=== PATIENT | male | born 1970 | race African-American/Black ===

== ENCOUNTER → 2021-01-07 | Day surgery (SDC) | payer OTHER ==
[~2021-01-07] MED LIST: HYOSCYAMINE SULFATE 0.5 MG/ML INJ ONE; IRON PO; MULTI-VITAMIN1 EACH PO; NAPROXEN250 MG PO; OMEGA 3 FISH O1 EACH PO; PROPOFOL IV EMULSION 10 MG/ML 20 ML VIAL ONE; VITAMIN C PO
[2021-01-07 14:26] VITALS: BP 138/90
== END | disposition home or self-care (01) ==
LOC: OR 10:01
PROVIDERS: ATTEND Internal Medicine Gastroenterology
DX: Z12.11 Encounter for screening for malignant neoplasm of colon (principal); K62.1 Rectal polyp; K57.30 Diverticulosis of large intestine without perforation or abscess without bleeding; K64.8 Other hemorrhoids; K92.1 Melena; R03.0 Elevated blood-pressure reading, without diagnosis of hypertension; F17.210 Nicotine dependence, cigarettes, uncomplicated; Z01.810 Encounter for preprocedural cardiovascular examination; Z01.812 Encounter for preprocedural laboratory examination; Z20.822 Contact with and (suspected) exposure to COVID-19; Z68.26 Body mass index [BMI] 26.0-26.9, adult
CPT/HCPCS: 45378; 45384; 93005; J1980; U0002